=== PATIENT | female | born 1980 | race Caucasian/White ===

== ENCOUNTER 2019-09-28 09:41 | Day surgery (SDC) | payer OTHER, SELFPAY ==
[2019-09-28] VITALS (7 sets, daily range): BP systolic 100–116; BP diastolic 66–74; PULSE 62–87; RESP 16–18; TEMP 36.4–37.4; O2SAT 94–98; BMI 28.8
[2019-09-28 10:30] LABS: Internal QC Validated? YES +Cl - CLEAR BKGD; Pregnancy, Urine Negative Negative
[2019-09-28] MEDS: Lactated Ringers 1,000 ML 100 ML IV (10:37)
--- NOTE | 2019-09-28 12:09 | OP.PCM_ITS ---
Problem List (1) ARTEMIO (stress urinary incontinence, female) Status: Acute (2) Urethral hypermobility Status: Acute Report of Operation Date of Procedure: 09/28/19 Pre-Operative Diagnosis: stress incontinence and urethral hypermobility Post-Operative Diagnosis: same Surgery/Procedure Performed:: Altis midurethral sling, cystoscopy Type of Anesthesia:: General Description of Procedure: The patient is a 39-year-old female who presented to the office with mixed urinary incontinence. She was evaluated with urodynamics and cystoscopy. She decided to proceed with mid urethral sling insertion and cystoscopy under anesthesia. Informed consent was obtained. The patient was taken to the operating room and placed on the operating room table. Anesthesia monitored the head, neck, airway, IV access and vital signs throughout the case. Once anesthesia was appropriately administered the patient was placed into dorsal lithotomy in Trendelenburg position. She was prepped and draped in usual sterile fashion. A 16 [place] Wade catheter was inserted and the bladder was drained. The mid urethra was injected submucosally with 1% lidocaine with epinephrine. A midline incision was made approximately 1.5 cm in length vertical in fashion over the mid urethra. Sharp and blunt dissection was performed on either side of the urethra with care being taken to avoid entrance into the urethra or the vaginal mucosa. The trochars were then used to pass the Altis mid urethral sling into the obturator complex on each side. The sling lay flat against the urethra without tension. The tensioning suture was cut. The incision was closed using running interlocking 2-0 Vicryl. A cystourethroscopy was performed revealing no entrance into the urinary bladder or the urethra. The cystoscope was removed and the patient was awakened and taken to the recovery room in good condition. There were no complications during this pro cedure. Grafts/Implants Used: Altis midurethral sling - Complications None - Admit VTE Documentation VTE Present on Admission: Yes VTE Mechan Device Prophylaxis: SCD's VTE Pharm Prophylaxis ordered?: No Reason prophylaxis not ordered:: Treatment Not Indicated
--- NOTE | 2019-09-28 12:10 | PCM.DC.URO ---
Discharge Diet: No Restrictions Discharge Activity: May not drive while taking narcotic pain medications., May Shower May resume sexual activity in: 4 weeks Additional Activity Instructions:: no lifting over 5 pounds, no exercise, no vacuuming, no swimming, no tub bathing, no intercourse, nothing per vagina for 4 weeks. Call your doctor if your incision/area has: Continuous Slow Oozing, Sudden Increased Bleeding, Foul Smelling Discharge Call your doctor if you observe: Fever of 101 or Higher, Inability to urinate, Inability to have a bowel movement, Calf discomfort, Uncontrolled pain Allergies/Adverse Reactions: Allergies No Known Allergies Allergy (Verified 09/28/19 10:26) Medications to take at Discharge Cephalexin [Keflex] 500 mg PO Q12 3 Days #6 cap 09/28/19 Hydrocodone Bitart/Apap 5-325 [[place] 5MG-325MG] 1 tab PO Q4H PRN PRN 7 Days #20 tab 09/28/19 The following prescriptions were given: Cephalexin [Keflex] 500 mg PO Q12 3 Days #6 cap Prescription Printed Hydrocodone Bitart/Apap 5-325 [[place] 5MG-325MG] 1 tab PO Q4H PRN PRN 7 Days #20 tab PRN Reason: Pain Prescription Printed Primary Care Physician: Bayron Santos MD [Primary Care Provider] - Test Results: Test results from this visit will be discussed in further detail at your follow-up appointment, if applicable. Please Follow Up With: Kaitlin Vital MD When: call office for appt to be seen Proposed Discharge Date: 09/28/19
[2019-09-28] MEDS: Cefazolin 2 GM in 0.9% Normal Saline 100 ML IV (12:14)
== END 2019-09-28 15:05 | disposition home or self-care (01) ==
LOC: SDC 09:47 → AC 09:48
PROVIDERS: Anesthesiology; Family Provider Internal Medicine; PCP Internal Medicine; Referring Provider Urology; Visit Provider Urology
PROC: 0TJB8ZZ Inspection of Bladder, Via Natural or Artificial Opening Endoscopic (ICD-10-PCS; CPT 57288; principal; 2019-09-28 11:30)
DX: N36.41 Hypermobility of urethra (principal); N39.46 Mixed incontinence; R35.0 Frequency of micturition; R35.1 Nocturia; Z87.891 Personal history of nicotine dependence
CPT/HCPCS: 57288; 81025; J7120; J2405